=== PATIENT | female | born 1975 | race Two or more races ===

== ENCOUNTER → 2017-05-26 | Outpatient (CLI) | payer OTHER | END | disposition home or self-care (01) | LOC: CFH 14:35 | PROVIDERS: ATTEND Internal Medicine | DX: N64.4 Mastodynia (principal); N63 Unspecified lump in breast | CPT/HCPCS: 76641; G0204 ==

== ENCOUNTER → 2021-05-05 | Outpatient (CLI) | payer OTHER | END | disposition home or self-care (01) | LOC: CFH 15:56 | PROVIDERS: ATTEND Emergency Medicine | DX: N85.2 Hypertrophy of uterus (principal); N83.01 Follicular cyst of right ovary; N93.9 Abnormal uterine and vaginal bleeding, unspecified | CPT/HCPCS: 76830 ==